=== PATIENT | female | born 1950 | race African-American/Black ===

== ENCOUNTER 2020-09-17 01:45 | Emergency (ER) | payer OTHER ==
[2020-09-17 02:40] VITALS: BP 130/81; PULSE 70; TEMP 98.6; BMI 18.0
[2020-09-17] MEDS ORDERED: DEXAMETHASONE SOD PHOSPHATE 10 MG/1 ML VIAL IM ONE (02:54)
[2020-09-17] MEDS ORDERED: DEXAMETHASONE SOD PHOSPHATE 10 MG/1 ML VIAL ONE (03:02)
== END 2020-09-17 04:15 | disposition home or self-care (01) ==
LOC: JER 01:45
PROC: 3E0233Z Introduction of Anti-inflammatory into Muscle, Percutaneous Approach (ICD-10-PCS; principal; 2020-09-17)
DX: M25.512 Pain in left shoulder (principal)
CPT/HCPCS: 73030-TC-LT-FY; 93005; 93010; 99284-25; J1100